=== PATIENT | male | born 2000 | race Caucasian/White ===

== ENCOUNTER 2020-12-25 10:16 | Outpatient (CLI) | payer OTHER, SELFPAY | END 2020-12-25 10:17 | disposition home or self-care (01) | LOC: ANHCOVIDVC 10:16 | DX: Z23 Encounter for immunization (principal) | CPT/HCPCS: 0001A; 91300 ==

== ENCOUNTER 2021-01-15 10:17 | Outpatient (CLI) | payer OTHER, SELFPAY | END 2021-01-15 10:18 | disposition home or self-care (01) | LOC: ANHCOVIDVC 10:17 | DX: Z23 Encounter for immunization (principal) | CPT/HCPCS: 0002A; 91300 ==